=== PATIENT | female | born 1995 | race African-American/Black ===

== ENCOUNTER 2017-02-02 07:38 | Emergency (ER) | payer OTHER ==
[~2017-02-02] VITALS: Ht 160 cm; Wt 98.0 kg
[2017-02-02 08:03] LABS: ABSOLUTE NEUTROPHILS 5.5 thou/uL (1.4-8.2); BASOPHILS 0.4 % (0.0-2.0); HEMATOCRIT 40.3 % (37.0-47.0); HEMOGLOBIN 13.3 gm/dL (12.0-15.0); LYMPHOCYTES 34.1 % (24.0-44.0); MCH 26.9 pg (26.0-34.0); MCHC 32.9 g/dL (28.0-37.0); MCV 81.8 fL (80.0-100.0); MONOCYTES 6.4 % (1.0-8.0); PLATELET COUNT 279 thou/uL (150-400); POLYS 57.1 % (36.0-66.0); RBC 4.93 mil/uL (4.20-5.00); RDW 13.6 % (10.5-14.5); WBC 9.7 thou/uL (4.0-11.0)
[2017-02-02 08:05] LABS: MANUAL DIFF NO
[2017-02-02 08:21] LABS: URINE BILIRUBIN NEGATIVE (Negative); URINE BLOOD 3+ (Negative); URINE COLOR YELLOW; URINE GLUCOSE-RANDOM* NEGATIVE (Negative); URINE KETONES NEGATIVE (Negative); URINE LEUKOCYTES-REFLEX NEGATIVE (Negative); URINE PROTEIN (DIPSTICK) NEGATIVE (Negative); URINE UROBILINOGEN 0.2 E.U./dl (0.2-1.0)
[2017-02-02 08:32] LABS: SQUAMOUS >10 Many /LPF (0-3); URINE RBC >20 Many /HPF (0-2); URINE WBC-REFLEX 0-5 Rare /HPF (0-5)
[2017-02-02 08:33] LABS: CASTS None Seen /LPF (None Seen); CRYSTALS None Seen /LPF (None Seen)
[2017-02-02 08:46] LABS: CALCIUM 8.2 mg/dL (8.5-10.1); CREATININE 0.8 mg/dL (0.6-1.0); POTASSIUM 3.9 mmol/L (3.5-5.1)
[2017-02-02 08:51] LABS: ALBUMIN 2.9 g/dL (3.4-5.0); TOTAL BILIRUBIN 0.5 mg/dL (<0.1-1.0); TOTAL PROTEIN 6.9 g/dL (6.4-8.2)
[2017-02-02] MEDS ORDERED: NORCO 5-325 TA1 EACH PO (09:28)
[2017-02-02] MEDS ORDERED: ZOFRAN ODT4 MG PO (09:28)
[2017-02-02] MEDS ORDERED: COLACE100 MG PO (09:31)
[2017-02-02 09:46] VITALS: BP 118/65
== END 2017-02-02 09:50 | disposition home or self-care (01) ==
LOC: ER 07:38
PROVIDERS: Emergency Medicine
DX: K80.70 Calculus of gallbladder and bile duct without cholecystitis without obstruction (principal); Z90.89 Acquired absence of other organs

== ENCOUNTER 2017-02-21 18:37 | Emergency (ER) | payer OTHER ==
[~2017-02-21] VITALS: Ht 160 cm; Wt 117.9 kg
[~2017-02-21 18:37] MED LIST: COLACE100 MG PO; NORCO 5-325 TA1 EACH PO; ZOFRAN ODT4 MG PO
[2017-02-21] MEDS ORDERED: NORCO 5-325 TA1 EACH PO (19:53)
[2017-02-21 20:02] VITALS: BP 147/82
== END 2017-02-21 20:03 | disposition home or self-care (01) ==
LOC: ER 18:37
DX: S93.491A Sprain of other ligament of right ankle, initial encounter (principal); Z87.19 Personal history of other diseases of the digestive system; Z98.890 Other specified postprocedural states; F12.10 Cannabis abuse, uncomplicated; W01.0XXA Fall on same level from slipping, tripping and stumbling without subsequent striking against object, initial encounter; Y93.02 Activity, running; Y92.89 Other specified places as the place of occurrence of the external cause; Y99.8 Other external cause status

== ENCOUNTER 2017-11-11 12:59 | Emergency (ER) | payer OTHER ==
[~2017-11-11] VITALS: Ht 157.5 cm; Wt 90.7 kg
[2017-11-11] MEDS ORDERED: AMOXICILLIN 50500 MG PO (14:04)
== END 2017-11-11 14:30 | disposition home or self-care (01) ==
LOC: ER 12:59
DX: H66.91 Otitis media, unspecified, right ear (principal); Z90.49 Acquired absence of other specified parts of digestive tract

== ENCOUNTER 2017-12-09 17:55 | Emergency (ER) | payer OTHER ==
[~2017-12-09] VITALS: Ht 160 cm; Wt 90.7 kg
[~2017-12-09 17:55] MED LIST changes: +AMOXICILLIN 50500 MG PO
[2017-12-09 18:27] LABS: URINE BILIRUBIN NEGATIVE (Negative); URINE BLOOD 1+ (Negative); URINE CLARITY CLEAR; URINE COLOR YELLOW; URINE GLUCOSE-RANDOM* NEGATIVE (Negative); URINE KETONES NEGATIVE (Negative); URINE LEUKOCYTES-REFLEX NEGATIVE (Negative); URINE NITRITE-REFLEX NEGATIVE (Negative); URINE PROTEIN (DIPSTICK) TRACE (Negative); URINE SPECIFIC GRAVITY >= 1.030 (1.005-1.035); URINE UROBILINOGEN 0.2 E.U./dl (0.2-1.0)
[2017-12-09 18:35] LABS: CASTS None Seen /LPF (None Seen); CRYSTALS None Seen /LPF (None Seen); SQUAMOUS >10 Many /LPF (0-3)
[2017-12-09 18:36] LABS: BACTERIA-REFLEX 1-9 Few /HPF (None Seen); URINE RBC 0-2 Rare /HPF (0-2); URINE WBC-REFLEX 6-15 Few /HPF (0-5)
[2017-12-09 19:13] LABS: ABSOLUTE NEUTROPHILS 7.7 thou/uL (1.4-8.2); BASOPHILS 0.3 % (0.0-2.0); EOSINOPHILS 0.7 % (0.0-3.0); HEMATOCRIT 35.2 % (37.0-47.0); HEMOGLOBIN 11.5 gm/dL (12.0-15.0); LYMPHOCYTES 29.9 % (24.0-44.0); MCH 24.8 pg (26.0-34.0); MCHC 32.5 g/dL (28.0-37.0); MCV 76.3 fL (80.0-100.0); MONOCYTES 6.5 % (1.0-8.0); PLATELET COUNT 327 thou/uL (150-400); POLYS 62.6 % (36.0-66.0); RBC 4.62 mil/uL (4.20-5.00); RDW 17.1 % (10.5-14.5); WBC 12.3 thou/uL (4.0-11.0)
[2017-12-09 19:23] LABS: CALCIUM 8.6 mg/dL (8.5-10.1); CREATININE 0.7 mg/dL (0.6-1.0); POTASSIUM 3.5 mmol/L (3.5-5.1)
[2017-12-09 19:28] LABS: ALBUMIN 2.8 g/dL (3.4-5.0); TOTAL BILIRUBIN 0.1 mg/dL (<0.1-1.0); TOTAL PROTEIN 6.8 g/dL (6.4-8.2)
[2017-12-09] MEDS ORDERED: ZOFRAN ODT8 MG PO (20:00)
[2017-12-09] MEDS ORDERED: HYDROCODONE-AP1 EAC6 PO (20:00)
== END 2017-12-09 20:36 | disposition home or self-care (01) ==
LOC: ER 17:55
PROVIDERS: Emergency Medicine
DX: O26.891 Other specified pregnancy related conditions, first trimester (principal); Z3A.00 Weeks of gestation of pregnancy not specified; R10.11 Right upper quadrant pain; R11.2 Nausea with vomiting, unspecified

== ENCOUNTER 2018-01-12 16:33 | Emergency (ER) | payer OTHER ==
[~2018-01-12] VITALS: Ht 160 cm; Wt 97.5 kg
[~2018-01-12 16:33] MED LIST changes: +HYDROCODONE-AP1 EAC6 PO; +ZOFRAN ODT8 MG PO
[2018-01-12] MEDS ORDERED: PRENATAL PO (16:49)
[2018-01-12 17:06] LABS: URINE BILIRUBIN 1+ (Negative); URINE BLOOD 1+ (Negative); URINE CLARITY CLEAR; URINE COLOR YELLOW; URINE GLUCOSE-RANDOM* NEGATIVE (Negative); URINE KETONES 1+ (Negative); URINE LEUKOCYTES TRACE (Negative); URINE NITRITE NEGATIVE (Negative); URINE PROTEIN (DIPSTICK) 1+ (Negative); URINE SPECIFIC GRAVITY >= 1.030 (1.005-1.035)
[2018-01-12 17:07] LABS: BASOPHILS 0.3 % (0.0-2.0); EOSINOPHILS 0.6 % (0.0-3.0); HEMATOCRIT 34.8 % (37.0-47.0); HEMOGLOBIN 11.4 gm/dL (12.0-15.0); MCH 25.1 pg (26.0-34.0); MCHC 32.9 g/dL (28.0-37.0); MCV 76.2 fL (80.0-100.0); MONOCYTES 6.3 % (1.0-8.0); PLATELET COUNT 242 thou/uL (150-400); POLYS 52.8 % (36.0-66.0); RBC 4.56 mil/uL (4.20-5.00); RDW 17.4 % (10.5-14.5); WBC 7.6 thou/uL (4.0-11.0)
[2018-01-12 17:08] LABS: ICTOTEST (BILI CONFIRMATORY) Negative (Negative)
[2018-01-12 17:15] LABS: BACTERIA 1-9 Few /HPF (None Seen); CRYSTALS None Seen /LPF (None Seen); MUCUS >6 Heavy strn/LPF (None Seen); SQUAMOUS 4-10 Moderate /LPF (0-3); URINE RBC 3-10 Few /HPF (0-2); URINE WBC 0-5 Rare /HPF (0-5)
[2018-01-12 17:16] LABS: HYALINE CASTS 0-3 Few /LPF (None Seen)
[2018-01-12 17:16] LABS: CALCIUM 8.5 mg/dL (8.5-10.1); CREATININE 0.8 mg/dL (0.6-1.0); POTASSIUM 3.1 mmol/L (3.5-5.1)
[2018-01-12] MEDS ORDERED: FLAGYL500 MG PO (18:13)
[2018-01-12] MEDS ORDERED: PHENERGAN 25 MG25 M1 PO (18:18)
[2018-01-12] MEDS ORDERED: ZOFRAN ODT4 MG PO (18:18)
[2018-01-12 18:52] VITALS: BP 137/87
== END 2018-01-12 18:54 | disposition home or self-care (01) ==
LOC: ER 16:33
PROVIDERS: Emergency Medicine
DX: O20.0 Threatened abortion (principal); O98.312 Other infections with a predominantly sexual mode of transmission complicating pregnancy, second trimester; A59.9 Trichomoniasis, unspecified; R11.2 Nausea with vomiting, unspecified; E87.6 Hypokalemia; Z3A.15 15 weeks gestation of pregnancy; Z90.49 Acquired absence of other specified parts of digestive tract

== ENCOUNTER 2018-01-16 15:15 | Emergency (ER) | payer OTHER ==
[~2018-01-16] VITALS: Ht 160 cm; Wt 97.5 kg
[~2018-01-16 15:15] MED LIST changes: +FLAGYL500 MG PO; +PHENERGAN 25 MG25 M1 PO; +PRENATAL PO
[2018-01-16 16:02] LABS: URINE BILIRUBIN 1+ (Negative); URINE BLOOD TRACE (Negative); URINE CLARITY SL CLOUDY; URINE COLOR DARK YELLOW; URINE GLUCOSE-RANDOM* NEGATIVE (Negative); URINE KETONES 1+ (Negative); URINE LEUKOCYTES-REFLEX 2+ (Negative); URINE NITRITE-REFLEX POSITIVE (Negative); URINE PROTEIN (DIPSTICK) TRACE (Negative); URINE SPECIFIC GRAVITY 1.025 (1.005-1.035); URINE UROBILINOGEN 0.2 E.U./dl (0.2-1.0)
[2018-01-16 16:04] LABS: ICTOTEST (BILI CONFIRMATORY) Negative (Negative)
[2018-01-16 16:07] LABS: CASTS None Seen /LPF (None Seen); SQUAMOUS >10 Many /LPF (0-3); URINE WBC-REFLEX 0-5 Rare /HPF (0-5)
[2018-01-16 16:08] LABS: CRYSTALS None Seen /LPF (None Seen)
[2018-01-16 16:16] LABS: ABSOLUTE NEUTROPHILS 4.2 thou/uL (1.4-8.2); BASOPHILS 0.2 % (0.0-2.0); EOSINOPHILS 1.1 % (0.0-3.0); HEMOGLOBIN 11.3 gm/dL (12.0-15.0); MCHC 32.3 g/dL (28.0-37.0); MCV 77.6 fL (80.0-100.0); MONOCYTES 7.7 % (1.0-8.0); PLATELET COUNT 285 thou/uL (150-400); RBC 4.51 mil/uL (4.20-5.00); RDW 17.5 % (10.5-14.5); WBC 6.8 thou/uL (4.0-11.0)
[2018-01-16 16:23] LABS: CALCIUM 8.9 mg/dL (8.5-10.1); CREATININE 0.7 mg/dL (0.6-1.0); POTASSIUM 3.4 mmol/L (3.5-5.1)
[2018-01-16 16:29] LABS: ALBUMIN 2.6 g/dL (3.4-5.0); TOTAL BILIRUBIN 0.4 mg/dL (<0.1-1.0); TOTAL PROTEIN 6.8 g/dL (6.4-8.2)
[2018-01-16] MEDS ORDERED: ZOFRAN ODT8 MG PO (16:51)
[2018-01-16] MEDS ORDERED: PEPCID20 MG PO (16:51)
[2018-01-16] MEDS ORDERED: AMOXICILLIN 50500 M1 PO (16:51)
[2018-01-16] MEDS ORDERED: PROMS25 WY RECTAL (16:54)
[2018-01-16 18:03] VITALS: BP 113/60
== END 2018-01-16 18:05 | disposition home or self-care (01) ==
LOC: ER 15:15
PROVIDERS: Emergency Medicine
DX: O21.0 Mild hyperemesis gravidarum (principal); O23.42 Unspecified infection of urinary tract in pregnancy, second trimester; Z3A.00 Weeks of gestation of pregnancy not specified; Z90.49 Acquired absence of other specified parts of digestive tract

== ENCOUNTER 2020-01-23 18:37 | Emergency (ER) | payer OTHER ==
[~2020-01-23] VITALS: Ht 157.5 cm; Wt 97.5 kg
[~2020-01-23 18:37] MED LIST changes: +AMOXICILLIN 50500 M1 PO; +PEPCID20 MG PO; +PROMS25 WY RECTAL
[2020-01-23 18:55] LABS: URINE BILIRUBIN NEGATIVE (Negative); URINE BLOOD 3+ (Negative); URINE COLOR YELLOW; URINE GLUCOSE-RANDOM* NEGATIVE (Negative); URINE KETONES NEGATIVE (Negative); URINE LEUKOCYTES-REFLEX TRACE (Negative); URINE PROTEIN (DIPSTICK) TRACE (Negative); URINE SPECIFIC GRAVITY 1.025 (1.005-1.035); URINE UROBILINOGEN 0.2 E.U./dl (0.2-1.0)
[2020-01-23 19:00] LABS: URINE NITRITE-REFLEX POSITIVE (Negative)
[2020-01-23 19:01] LABS: URINE CLARITY SL HAZY
[2020-01-23 19:03] LABS: SQUAMOUS >10 Many /LPF (0-3)
[2020-01-23 19:04] LABS: CASTS None Seen /LPF (None Seen); CRYSTALS None Seen /LPF (None Seen); MUCUS >6 Heavy strn/LPF (None Seen); URINE RBC 3-10 Few /HPF (0-2); URINE WBC-REFLEX 6-15 Few /HPF (0-5)
[2020-01-23 19:30] VITALS: BP 146/82
[2020-01-23 19:47] LABS: ABSOLUTE NEUTROPHILS 6.6 thou/uL (1.4-8.2); BASOPHILS 0.3 % (0.0-2.0); EOSINOPHILS 1.1 % (0.0-3.0); HEMATOCRIT 37.1 % (37.0-47.0); HEMOGLOBIN 11.4 gm/dL (12.0-15.0); LYMPHOCYTES 26.3 % (24.0-44.0); MCH 23.4 pg (26.0-34.0); MCHC 30.8 g/dL (28.0-37.0); MCV 76.1 fL (80.0-100.0); MONOCYTES 7.1 % (1.0-8.0); PLATELET COUNT 360 thou/uL (150-400); POLYS 65.2 % (36.0-66.0); RBC 4.88 mil/uL (4.20-5.00); RDW 14.9 % (10.5-14.5); WBC 10.1 thou/uL (4.0-11.0)
[2020-01-23 20:36] LABS: URINE BILIRUBIN NEGATIVE (Negative); URINE BLOOD 3+ (Negative); URINE CLARITY SL CLOUDY; URINE COLOR YELLOW; URINE GLUCOSE-RANDOM* NEGATIVE (Negative); URINE KETONES NEGATIVE (Negative); URINE NITRITE-REFLEX NEGATIVE (Negative); URINE PROTEIN (DIPSTICK) 1+ (Negative); URINE SPECIFIC GRAVITY 1.015 (1.005-1.035); URINE UROBILINOGEN 0.2 E.U./dl (0.2-1.0)
[2020-01-23 20:44] LABS: URINE LEUKOCYTES-REFLEX 1+ (Negative)
[2020-01-23 20:46] LABS: SQUAMOUS 0-3 Few /LPF (0-3)
[2020-01-23 20:47] LABS: BACTERIA-REFLEX 1-9 Few /HPF (None Seen); CASTS None Seen /LPF (None Seen); CRYSTALS None Seen /LPF (None Seen); URINE RBC >20 Many /HPF (0-2); URINE WBC-REFLEX 6-15 Few /HPF (0-5)
== END 2020-01-23 21:10 | disposition home or self-care (01) ==
LOC: ER 18:37
PROVIDERS: Emergency Medicine
DX: O03.9 Complete or unspecified spontaneous abortion without complication (principal); Z90.49 Acquired absence of other specified parts of digestive tract

== ENCOUNTER 2021-01-05 15:45 | Emergency (ER) | payer OTHER ==
[~2021-01-05] VITALS: Ht 160 cm; Wt 93.9 kg
[2021-01-05 15:48] VITALS: BP 152/103
[2021-01-05 16:33] LABS: URINE BILIRUBIN NEGATIVE (Negative); URINE BLOOD 3+ (Negative); URINE GLUCOSE-RANDOM* NEGATIVE (Negative); URINE KETONES TRACE (Negative); URINE PROTEIN (DIPSTICK) 3+ (Negative)
[2021-01-05 16:38] LABS: URINE LEUKOCYTES-REFLEX 2+ (Negative); URINE NITRITE-REFLEX POSITIVE (Negative)
[2021-01-05 16:46] LABS: HEMATOCRIT 39.3 % (37.0-47.0); HEMOGLOBIN 12.2 gm/dL (12.0-15.0); MCH 24.4 pg (26.0-34.0); MCHC 31.1 g/dL (28.0-37.0); MCV 78.5 fL (80.0-100.0); RBC 5.01 mil/uL (4.20-5.00); RDW 14.3 % (10.5-14.5); WBC 9.3 thou/uL (4.0-11.0)
[2021-01-05 16:51] LABS: CASTS None Seen /LPF (None Seen); SQUAMOUS 0-3 Few /LPF (0-3); URINE RBC >20 Many /HPF (0-2); URINE WBC-REFLEX 6-15 Few /HPF (0-5)
[2021-01-05 16:52] LABS: BACTERIA-REFLEX 1-9 Few /HPF (None Seen); CRYSTALS None Seen /LPF (None Seen)
[2021-01-05 16:54] LABS: URINE CLARITY CLOUDY; URINE COLOR RED
[2021-01-05 16:57] LABS: CALCIUM 8.9 mg/dL (8.5-10.1); CREATININE 1.1 mg/dL (0.6-1.0)
[2021-01-05 16:59] LABS: POTASSIUM 4.1 mmol/L (3.5-5.1)
[2021-01-05] MEDS ORDERED: KEFLEX500 M1 PO (18:17)
== END 2021-01-05 18:21 | disposition home or self-care (01) ==
LOC: ER 15:45
PROVIDERS: Nurse Practitioner Family
DX: N39.0 Urinary tract infection, site not specified (principal)